=== PATIENT | male | born 1975 | race Asian ===

== ENCOUNTER 2016-04-08 13:42 | Emergency (ER) | payer SELFPAY ==
--- NOTE | 2016-04-08 14:07 | ED NURSING NOTES ---
Clinical Report - Nurses [facility] [address] [place] [address] 04/08/2016 13:43 Patient: AURELIO JAY TRIAGE Triage time 13:58. Acuity: LEVEL 5. Chief Complaint: SKIN RASH. Alert. No acute distress. ( Pt. is concerned the rash may be spreading.). SEPSIS SCREEN: Sepsis Screen. Negative (no infection suspected/documented). WILLY COMA SCORE: [place] Coma Scale: 15- eyes open spontaneously (4); best verbal response- oriented x 4 (5); best motor response- obeys commands (6). --14:08 Soraya Sigala R.N. 14:02 04/08/16. BP: 146/105. HR: 85. RR: 16. O2 saturation: 100%. Temp: 98 F. Pain level now 04/11. --14:08 Soraya Sigala R.N. Weight: 65.7 kg stated. Height/Length: 66 inches Per Patient. BMI: 23.4. --14:03 Soraya Sigala R.N. Medications Bactrim Oral. --14:00 Soraya Sigala R.N. Allergies Penicillin. --14:00 Soraya Sigala R.N. Iodine. --14:00 Soraya Sigala R.N. History Arrived by private vehicle. Historian: patient. Unaccompanied. Primary physician (Lynn Atwood). Reported as located on the face. Onset. (3 1/2 weeks ago). 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 (seen and treated on sat. rx'ed sulfameth [id number]). PAST MEDICAL HX: Immunizations: up-to-date. SOCIAL HX: Heavy tobacco smoker (cigarette)- less than 1 pack per day. Never smoker. No alcohol use or drug use. No infectious disease exposure. ABUSE ASSESSMENT: No report of abuse. SELF HARM ASSESSMENT: A self harm assessment was performed. The patient answered "no" to the question "Do you have thoughts of harming or killing yourself?" and "Have you recently had thoughts about harming or killing others?". NUTRITIONAL RISK ASSESSMENT: The nutritional risk assessment revealed no deficiencies. FUNCTIONAL ASSESSMENT: Functional assessment: no impairments noted. LEARNING NEEDS ASSESSMENT: The learning needs assessment revealed no barriers. --14:08 Soraya Sigala R.N. PROBLEMS: Chest Wall Pain. Hypertension. Conjunctivitis. Corneal Abrasion. Abdominal Pain. Gastritis. --14:02 Soraya Sigala R.N. Interventions ID band on patient. Ambulatory. --14:08 Soraya Sigala R.N. PHYSICAL ASSESSMENT Ambulatory to room. GENERAL / NEURO / PSYCH: Alert. The patient does not appear to be in acute distress. RESPIRATORY: Respirations not labored. CVS: Capillary refill less than 2 seconds. SKIN: Skin is intact, warm and dry. --14:04 Soraya Sigala R.N. NURSING PROGRESS NOTES Two patient identifiers checked. Call light placed in reach. Patient ready for evaluation- chart flagged. --14:04 Soraya Sigala R.N. DISPOSITION / DISCHARGE Departure time: 1401 14:15 Apr 08 2016. No learning barriers present. Discharge instructions provided and reviewed with the patient. Reviewed medication(s) side effects information. Patient verbalized understanding. Written instructions provided in [place]. The patient was discharged by the physician clinical trials assistant. He was discharged home and accompanied by family. He left the Emergency Department ambulatory and via private vehicle. Patient driving. ( For discharge vitals see triage vitals. pt was in no distress on discharge alert and oriented verbalized understanding of discharge instructions and follow up care). --14:16 Dariusz Plummer R.N. 14:14 04/08/16. Pain level now 0/10. --14:16 Dariusz Plummer R.N. Locked/Released at 04/24/2016 6:41 by Karen Duarte R.N.
--- NOTE | 2016-04-08 14:07 | ED CLINICAL REPORT ---
Clinical Report - Physicians/Mid Levels [facility] [address] [place] [address] 04/08/2016 13:43 Patient: AURELIO JAY Time Seen: 1400 Apr 08 2016. Arrived- By private vehicle. Historian- patient. HISTORY OF PRESENT ILLNESS Chief Complaint: SKIN RASH. 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 Not itchy. It has been located on the face. (Ongoing rash for the last 3 days, no improvement or worsening, recent on Bactrim. Denies any drainage from the area. He denies any trauma. Denies history of zoster, reports he did have chickenpox as a child. Denies any pain. Denies any history of MRSA.). Recent medical care: The patient was seen recently in a clinic. REVIEW OF SYSTEMS No fever, chills, difficulty breathing, lump in throat or nausea. No diarrhea. All systems otherwise negative, except as recorded above. PAST HISTORY Problems: Chest Wall Pain. Hypertension. Conjunctivitis. Corneal Abrasion. Immunizations. Abdominal Pain. Gastritis. Irritable Bowel Syndrome [RuleOut]. Medications: Bactrim Oral. Allergies: Iodine. Penicillin. SOCIAL HISTORY Smoker- current status unknown. No alcohol use or drug use. ADDITIONAL NOTES The nursing notes have been reviewed. PHYSICAL EXAM Vital Signs: 04/08/2016 14:02 BP: 146/105. HR: 85. RR: 16. O2 saturation: 100%. Temp: 98 F. Appearance: Alert. ENT: Ears normal. Nose normal. Neck: No lymphadenopathy. Respiratory: No respiratory distress. Breath sounds normal. Skin: Skin warm. Rash present on the face (small erythema lesions isolated, in total about 5 in an area of 2 by 2 cm, mildly elevated, no drainage. non tender. NO indurations or weeping). There is warmth and tenderness. No abscess. Neuro: Oriented X 3. PROGRESS AND PROCEDURES Course of Care: NO signs of oral infection, no signs of otitis. Patient stable. discussed if this is viral/ vs bacterial. Pt understands such. This is ongoing for almost one jeevan, and will add keflex to his regiment, and to f/u outpatient. Differential Diagnosis: I considered contact dermatitis, chronic eczema, bacterial infection, folliculitis, necrotizing subcutaneous infection, fungal infection, viral etiology and parasitic infection as a possible cause of rash in this patient. This is a partial list of diagnoses considered. Disposition: Discharged. CLINICAL IMPRESSION Cellulitis of the right cheek area. Atopic dermatitis. INSTRUCTIONS (this may represent herpes virus vs infection vs irritation may wash face with OTC face wash motrin/ tylenol if this does not improve may have to see Dermatology [facility] for PCP). Prescription Medications: Cefdinir 300mg capsules: Take 1 orally every 12 hours for 10 days. No refills. (Electronically signed by Lola Dc P.A.-C 04/08/2016 14:49) [place] AURELIO JAY VisitID: [id number] Date: 04/08/2016 04/24/2016 6:41 Locked for billing purposes (Electronically signed by Karen Duarte R.N. - 04/24/2016 6:41)
--- NOTE | 2016-04-08 14:07 | ED NURSING NOTES ---
Clinical Report - Nurses [place] [address] [place] [address] 04/08/2016 13:43 Patient: AURELIO JAY TRIAGE Triage time 13:58. Acuity: LEVEL 5. Chief Complaint: SKIN RASH. Alert. No acute distress. ( Pt. is concerned the rash may be spreading.). SEPSIS SCREEN: Sepsis Screen. Negative (no infection suspected/documented). WILLY COMA SCORE: [place] Coma Scale: 15- eyes open spontaneously (4); best verbal response- oriented x 4 (5); best motor response- obeys commands (6). --14:08 Soraya Sigala R.N. 14:02 04/08/16. BP: 146/105. HR: 85. RR: 16. O2 saturation: 100%. Temp: 98 F. Pain level now 04/11. --14:08 Soraya Sigala R.N. Weight: 65.7 kg stated. Height/Length: 66 inches Per Patient. BMI: 23.4. --14:03 Soraya Sigala R.N. Medications Bactrim Oral. --14:00 Soraya Sigala R.N. Allergies Penicillin. --14:00 Soraya Sigala R.N. Iodine. --14:00 Soraya Sigala R.N. History Arrived by private vehicle. Historian: patient. Unaccompanied. Primary physician (Lynn Atwood). Reported as located on the face. Onset. (3 1/2 weeks ago). Treatment WORK FROM HOME: Seen within the last 30 days in a clinic. (seen and treated on sat. rx'ed sulfameth [id number]). PAST MEDICAL HX: Immunizations: up-to-date. SOCIAL HX: Heavy tobacco smoker (cigarette)- less than 1 pack per day. Never smoker. No alcohol use or drug use. No infectious disease exposure. ABUSE ASSESSMENT: No report of abuse. SELF HARM ASSESSMENT: A self harm assessment was performed. The patient answered "no" to the question "Do you have thoughts of harming or killing yourself?" and "Have you recently had thoughts about harming or killing others?". NUTRITIONAL RISK ASSESSMENT: The nutritional risk assessment revealed no deficiencies. FUNCTIONAL ASSESSMENT: Functional assessment: no impairments noted. LEARNING NEEDS ASSESSMENT: The learning needs assessment revealed no barriers. --14:08 Soraya Sigala R.N. PROBLEMS: Chest Wall Pain. Hypertension. Conjunctivitis. Corneal Abrasion. Abdominal Pain. Gastritis. --14:02 Soraya Sigala R.N. Interventions ID band on patient. Ambulatory. --14:08 Soraya Sigala R.N. PHYSICAL ASSESSMENT Ambulatory to room. GENERAL / NEURO / PSYCH: Alert. The patient does not appear to be in acute distress. RESPIRATORY: Respirations not labored. CVS: Capillary refill less than 2 seconds. SKIN: Skin is intact, warm and dry. --14:04 Soraya Sigala R.N. NURSING PROGRESS NOTES Two patient identifiers checked. Call light placed in reach. Patient ready for evaluation- chart flagged. --14:04 Soraya Sigala R.N. DISPOSITION / DISCHARGE Departure time: 1401 14:15 Apr 08 2016. No learning barriers present. Discharge instructions provided and reviewed with the patient. Reviewed medication(s) side effects information. Patient verbalized understanding. Written instructions provided in [place]. The patient was discharged by the physician assistant field hockey coach. He was discharged home and accompanied by family. He left the Emergency Department ambulatory and via private vehicle. Patient driving. ( For discharge vitals see triage vitals. pt was in no distress on discharge alert and oriented verbalized understanding of discharge instructions and follow up care). --14:16 Dariusz Plummer R.N. 14:14 04/08/16. Pain level now 0/10. --14:16 Dariusz Plummer R.N. Locked/Released at 04/24/2016 6:41 by Karen Duarte R.N.
--- NOTE | 2016-04-08 14:07 | ED CLINICAL REPORT ---
Clinical Report - Physicians/Mid Levels [facility] [address] [place] [address] 04/08/2016 13:43 Patient: AURELIO JAY Time Seen: 1400 Apr 08 2016. Arrived- By private vehicle. Historian- patient. HISTORY OF PRESENT ILLNESS Chief Complaint: SKIN RASH. 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 Not itchy. It has been located on the face. (Ongoing rash for the last 3 days, no improvement or worsening, recent on Bactrim. Denies any drainage from the area. He denies any trauma. Denies history of zoster, reports he did have chickenpox as a child. Denies any pain. Denies any history of MRSA.). Recent medical care: The patient was seen recently in a clinic. REVIEW OF SYSTEMS No fever, chills, difficulty breathing, lump in throat or nausea. No diarrhea. All systems otherwise negative, except as recorded above. PAST HISTORY Problems: Chest Wall Pain. Hypertension. Conjunctivitis. Corneal Abrasion. Immunizations. Abdominal Pain. Gastritis. Irritable Bowel Syndrome [RuleOut]. Medications: Bactrim Oral. Allergies: Iodine. Penicillin. SOCIAL HISTORY Smoker- current status unknown. No alcohol use or drug use. ADDITIONAL NOTES The nursing notes have been reviewed. PHYSICAL EXAM Vital Signs: 04/08/2016 14:02 BP: 146/105. HR: 85. RR: 16. O2 saturation: 100%. Temp: 98 F. Appearance: Alert. ENT: Ears normal. Nose normal. Neck: No lymphadenopathy. Respiratory: No respiratory distress. Breath sounds normal. Skin: Skin warm. Rash present on the face (small erythema lesions isolated, in total about 5 in an area of 2 by 2 cm, mildly elevated, no drainage. non tender. NO indurations or weeping). There is warmth and tenderness. No abscess. Neuro: Oriented X 3. PROGRESS AND PROCEDURES Course of Care: NO signs of oral infection, no signs of otitis. Patient stable. discussed if this is viral/ vs bacterial. Pt understands such. This is ongoing for almost one jeevan, and will add keflex to his regiment, and to f/u outpatient. Differential Diagnosis: I considered contact dermatitis, chronic eczema, bacterial infection, folliculitis, necrotizing subcutaneous infection, fungal infection, viral etiology and parasitic infection as a possible cause of rash in this patient. This is a partial list of diagnoses considered. Disposition: Discharged. CLINICAL IMPRESSION Cellulitis of the right cheek area. Atopic dermatitis. INSTRUCTIONS (this may represent herpes virus vs infection vs irritation may wash face with OTC face wash motrin/ tylenol if this does not improve may have to see Dermatology [facility] for PCP). Prescription Medications: Cefdinir 300mg capsules: Take 1 orally every 12 hours for 10 days. No refills. (Electronically signed by Lola Dc P.A.-C 04/08/2016 14:49) [place] AURELIO JAY VisitID: [id number] Date: 04/08/2016 04/24/2016 6:41 Locked for billing purposes (Electronically signed by Karen Duarte R.N. - 04/24/2016 6:41)
--- NOTE | 2016-04-24 06:41 | ED MED RECONCILIATION SUMMARY ---
Patient: AURELIO JAY Medication Reconciliation Report [facility] VisitID: [id number] [address] [place] [address] 40y, M Registration Date/Time: 04/08/2016 Weight: 65.7 kg Height/Length: 66 in. BMI: 23.4 ALLERGIES: Iodine, Penicillin The patient's Home Medications are listed below: THE FOLLOWING MEDICATIONS NEED TO BE RECONCILED: Bactrim Oral The source(s) of the original Home Medication information: Not obtained. The following Medications were given to the patient in the Emergency Department: None. The following Medications were prescribed to the patient: Cefdinir 300mg capsules: Take 1 orally every 12 hours for 10 days. No refills. -- Lola Dc P.AAaliyahC
--- NOTE | 2016-04-24 06:41 | ED MED RECONCILIATION SUMMARY ---
Patient: AURELIO JAY Medication Reconciliation Report [facility] VisitID: [id number] [address] [place] [address] 40y, M Registration Date/Time: 04/08/2016 Weight: 65.7 kg Height/Length: 66 in. BMI: 23.4 ALLERGIES: Iodine, Penicillin The patient's Home Medications are listed below: THE FOLLOWING MEDICATIONS NEED TO BE RECONCILED: Bactrim Oral The source(s) of the original Home Medication information: Not obtained. The following Medications were given to the patient in the Emergency Department: None. The following Medications were prescribed to the patient: Cefdinir 300mg capsules: Take 1 orally every 12 hours for 10 days. No refills. -- Lola Dc P.AAaliyahC
--- NOTE | 2016-04-24 06:41 | ED DISCHARGE INSTRUCTIONS ---
Patient: AURELIO JAY General Instructions [facility] VisitID: [id number] [place] [address] 40y, M Registration Date/Time: 04/08/2016 Cellulitis of the right cheek area. Atopic dermatitis. INSTRUCTIONS (this may represent herpes virus vs infection vs irritation may wash face with OTC face wash motrin/ tylenol if this does not improve may have to see Dermatology [facility] for PCP). Prescription Medications: Cefdinir 300mg capsules: Take 1 orally every 12 hours for 10 days. No refills. ADDITIONAL INFORMATION Facial Cellulitis You have an infection of the skin known as cellulitis. This usually starts with a scrape, cut or insect bite which becomes infected. It may also occur from an infected oil gland (pimple) or hair follicle. This can be a serious condition and must be watched closely to be sure the infection is not spreading. With antibiotic treatment, the size of the red area will gradually shrink in size until the skin returns to normal. This will take 7-10 days. The red area should never increase in size once the antibiotic medicine has been started. Occasionally, an infection will be resistant to one antibiotic and another one will have to be used. Home Care: 1) Take all of the antibiotic medicine exactly as prescribed until it is gone. Be careful not to miss any doses, especially during the first few days. 2) A cool compress (face cloth soaked in cool water) applied to the face may help with the swelling and pain. 3) You may use acetaminophen (Tylenol) or ibuprofen (Motrin, Advil) to control pain, unless another medicine was prescribed. [ NOTE : If you have chronic liver or kidney disease or ever had a stomach ulcer or GI bleeding, talk with your doctor before using these medicines.] (Aspirin should never be used in anyone under 18 years of age who is ill with a fever. It may cause severe liver damage.) Follow Up with your doctor or this facility as directed. Check the infected area daily for the warning signs listed below. Get Prompt Medical Attention if any of the following occur: -- Increasing area of redness, swelling or pain -- Pus or fluid drainage from the skin or the eye -- Fever of 100.5 F (38 C) oral or 101.5 F (38.6 C) rectal for more than two days on antibiotics -- Eyelid swells shut -- Increasing headache or neck pain -- Unusual drowsiness or confusion -- Convulsion (seizure) Atopic Dermatitis (Eczema) Atopic dermatitis is a dry, itchy red rash that comes and goes. It is not contagious. It is most common in persons with asthma, hay fever, hives, or dry sensitive skin. The rash may be triggered by extreme heat or heavy sweating. Skin irritants may cause the rash to flare up, including wool or silk clothing, grease, oils, some medicines, and harsh soaps and detergents. And emotional stress may also be a trigger. Scratching may break the skin and lead to infection. Treatment is aimed at relieving the itching and local inflammation. Home Care: Keep the areas of rash clean by bathing regularly (at least every other day). Use lukewarm water to bathe. Avoid hot water, which can dry out the skin. Avoid soaps with detergents. Use mild, moisturizing soaps such as Dove or Cetaphil. Apply a moisturizing cream or ointment to damp skin right after bathing. Avoid things that irritate your skin. Wear absorbent, soft fabrics next to the skin rather than rough or scratchy materials. Use mild laundry soap free of scents and perfumes. Rinse all the soap out of the clothes before drying. Treat any skin infection as directed. Oral Benadryl (diphenhydramine) is an antihistamine available at drug and grocery stores. Unless a prescription antihistamine was given, Benadryl may be used to reduce itching if large areas of the skin are involved. Use lower doses during the daytime and higher doses at bedtime since the drug may make you sleepy. (NOTE: Do not use Benadryl if you have glaucoma or if you are a man with trouble urinating due to an enlarged prostate.) Claritin (loratadine) is an antihistamine that causes less drowsiness and is an alternative for daytime use. Follow Up: Make an appointment with your doctor in the next week if there is no improvement with the above measures. Get Prompt Medical Attention if any of the following occur: Increasing area of redness or pain in the skin Yellow crusts or wet drainage from the rash Fever of 100.4F (38C) or higher, or as directed by your healthcare provider You have been given the following additional information: Cellulitis, Facial Atopic Dermatitis (Eczema) (Electronically signed by Lola Dc P.A.-C 04/08/2016 14:49)
--- NOTE | 2016-04-24 06:41 | ED MAR SUMMARY ---
..... Medication Administration Record [facility] [address] [place], [place] [id number] Patient: AURELIO JAY Visit ID: [id number] 40y, M Weight: 65.7 kg Height/Length: 66 in BMI: 23.4 ALLERGIES: Iodine, Penicillin
--- NOTE | 2016-04-24 06:41 | ED MAR SUMMARY ---
..... Medication Administration Record [facility] [address] [place], [place] [id number] Patient: AURELIO JAY Visit ID: [id number] 40y, M Weight: 65.7 kg Height/Length: 66 in BMI: 23.4 ALLERGIES: Iodine, Penicillin
== END 2016-04-08 14:01 | disposition home or self-care (01) ==
LOC: ED SRH 13:42
DX: L03.211 Cellulitis of face (principal); L20.9 Atopic dermatitis, unspecified; I10 Essential (primary) hypertension; Z88.0 Allergy status to penicillin; Z91.048 Other nonmedicinal substance allergy status